=== PATIENT | male | born 1990 | race Asian ===

== ENCOUNTER 2022-02-04 08:09 | Emergency (ER) | payer MEDICAID ==
[~2022-02-04] VITALS: Ht 162.6 cm; Wt 93.4 kg
[2022-02-04 08:38] VITALS: BP_SYST 132
--- NOTE | 2022-02-04 08:40 | NUR ---
Triaged pt and placed in waiting room until bed becomes available. Pt arrived to ED accompanied by a sitter. Pt c/o right foot having splinters. Pt is afraid due to being diabetic. Has 1/10 pain. No s/s of infection noted. No redness and no drainage. Pt is A&Ox4. Skin intact. No chest pain and no sob. NKA. Has hx of Psych issues, DM, and Hyperlipidemia. VSS.
--- NOTE | 2022-02-04 08:57 | NUR ---
ER in triage room examining patient.
--- NOTE | 2022-02-04 09:30 | NUR ---
Patient given written and verbal discharge instructions and verbalizes understanding. ER MD discussed with patient the results and treatment provided. Patient in stable condition. ID arm band removed. Patient educated on pain management and to follow up with PMD. Pain 0/10. Opportunity for questions provided and answered.
== END 2022-02-04 09:39 | disposition home or self-care (01) ==
LOC: SED 08:09
DX: S90.851A Superficial foreign body, right foot, initial encounter (principal); W45.8XXA Other foreign body or object entering through skin, initial encounter; Y93.89 Activity, other specified; Y92.89 Other specified places as the place of occurrence of the external cause; Y99.8 Other external cause status
CPT/HCPCS: 99281

== ENCOUNTER 2024-03-09 18:13 | Emergency (ER) | payer MEDICAID ==
[~2024-03-09] VITALS: Ht 157.5 cm; Wt 96.6 kg
[2024-03-09 18:18] VITALS: BP_SYST 149; PULSE 108; RESP 18; TEMP 98.3; O2SAT 97
== END 2024-03-09 22:46 | disposition left against medical advice (07) ==
LOC: SED 18:13
DX: R22.0 Localized swelling, mass and lump, head (principal); E11.9 Type 2 diabetes mellitus without complications; Z53.21 Procedure and treatment not carried out due to patient leaving prior to being seen by health care provider